=== PATIENT | female | born 1965 | race Caucasian/White ===

== ENCOUNTER 2022-01-30 18:31 | Outpatient (CLI) | payer OTHER, SELFPAY | END 2022-01-30 18:32 | disposition home or self-care (01) | LOC: AMB 03-04 15:18 | PROVIDERS: Visit Provider Family Medicine | DX: S09.90XA Unspecified injury of head, initial encounter (principal); R51.9 Headache, unspecified; Y04.2XXA Assault by strike against or bumped into by another person, initial encounter; Y92.009 Unspecified place in unspecified non-institutional (private) residence as the place of occurrence of the external cause | CPT/HCPCS: A0425; A0427 ==

== ENCOUNTER 2023-03-29 16:15 | Outpatient (RCR) | payer OTHER, SELFPAY | END 2023-04-21 14:39 | disposition home or self-care (01) | PROVIDERS: Visit Provider Podiatrist | DX: S96.811A Strain of other specified muscles and tendons at ankle and foot level, right foot, initial encounter (principal); Z51.89 Encounter for other specified aftercare | CPT/HCPCS: 97110; 97140; 97161 ==